=== PATIENT | female | born 1960 | race Caucasian/White ===

== ENCOUNTER 2017-03-19 18:32 | Emergency (ER) | payer OTHER ==
[2017-03-19] MEDS: 0.9 % SODIUM CHLORIDE 1,000 ML IV ONE (18:58)
[2017-03-19 19:22] LABS: BASOPHILS % 0.6 (0.0-1.5); EOSINOPHILS % 1.6 % (0.0-6.8); MEAN CORPUSCULAR VOLUME 81.9 fl (80.0-100.0); MONOCYTES % 3.7 % (0.0-11.0); NEUTROPHILS # 5.8 # k/uL (1.4-7.7)
[2017-03-19 19:32] LABS: eGFR (African) > 60; eGFR (Non-African) > 60
--- NOTE | 2017-03-19 19:35 | ED Physician Documentation ---
Syncope/Near Syncope - HISTORIAN Historian: patient, paramedics - HPI Stated Complaint: Numbness/Tingling to Arms Chief Complaint: Near Syncope Witnessed: Yes Witnessed By: bystander Position at Time of Episode: standing Symptoms Prior to Episode: other (diaphoresis), light-headed Character of Events(s): almost passed out. denies: lost consciousness, became unresponsive, collapsed, felt faint, focal seizure, generalized seizure, tonic seizure, tonic-clonic seizure Location of Injury: none Associated Symptoms: none Further Comments: yes (56 year old female patient brought in via EMS, state she has 3 episodes today where she "felt like I was doing to pass out". Patient states she was at [facility] when the 3rd episode occurred, reports becoming dizzy, walked to the pharmacy, states she was diaphoretic, could not see to dial 911 on her phone, pharmacist called 911. Denies CP or SOB with episode.) - ROS CONST: recent illness EYES/ENT: none GI/: denies: diarrhea, black stools, problems urinating LNMP: denies: MS/SKIN/LYMPH: denies: joint pain, leg swelling, rash, swollen glands, ankle swelling, other NEURO/PSYCH: denies: confusion, anxiety, depression, other - PAST HX Cardiac Disease: none PE Risk Factors: hypertension Other History: Other (PTSD, anxiety, depression) Surgeries/Procedures: none Allergies/Adverse Reactions: Allergies Allergy/AdvReac Type Severity Reaction Status Date / Time Penicillins Allergy Verified 03/19/17 18:44 Home Medications: Ambulatory Orders Medication Instructions Recorded Hydroxyzine Pamoate [Vistaril] 25 mg PO TID 03/19/17 Potassium Chloride [Klor-Con 10] 10 meq PO DAILY #4 tablet.er 03/20/17 - SOCIAL HX Smoking History: non-smoker - FAMILY HX Family History: denies: none - VITAL SIGNS Vital Signs: Vital Signs Temp Pulse Resp BP Pulse Ox 98.1 F 55 L 16 138/54 99 03/19/17 18:35 03/20/17 05:39 03/20/17 05:39 03/20/17 05:39 03/20/17 05:39 - REVIEWED ASSESSMENTS Nursing Assessment Reviewed: Yes Vitals Reviewed: Yes Progress - Progress Progress: Reviewed lab results with patient. Offered observation admission for K replacement. Patient does not want to spend the night. Will replace per hospital IV protocol and discharge with po tabs. Repeat K 3.7 - will send home with 10meq po qd x 4 days. Follow up with primary care on Thursday - EKG/XRAY/CT EKG: rhythm (SR, rate 68, no acute changes) ED Results Lab/Radiology - Lab Results Lab Results: Lab Results 03/20/17 03/19/17 03/19/17 04:37 19:50 19:35 WBC RBC Hgb Hct MCV MCH MCHC RDW Plt Count Neut % (Auto) Lymph % (Auto) Kerr % (Auto) Eos % (Auto) Baso % (Auto) Neut # Lymph # Kerr # Eos # Baso # Reactive Lymphs % Reactive Lymphs # Sodium Potassium 3.7 mmol/L mmol/L (3.5-5.0) Chloride Carbon Dioxide BUN Creatinine Estimated Creat Clear Est GFR ( Amer) Est GFR (Non-Af Amer) Glucose Calcium Total Bilirubin AST ALT Alkaline Phosphatase Troponin I < 0.03 ng/mL L ng/mL (0.03-0.06) Total Protein Albumin Urine Color Yellow (YELLOW) Urine Appearance Cloudy H (CLEAR) Urine pH 5.5 (5.0 - 8.0) Ur Specific [place] 1.015 (1.010-1.030) Urine Protein 1+ mg/dL H mg/dL (NEGATIVE) Urine Ketones Trace mg/dL H mg/dL (NEGATIVE) Urine Occult Blood Negative (NEGATIVE) Urine Nitrite Negative (NEGATIVE) Urine Bilirubin Negative (NEGATIVE) Urine Urobilinogen 0.2 Eu Eu (0.2-1.0) Ur Leukocyte Esterase Trace H (NEGATIVE) Urine Glucose Negative mg/dL mg/dL (NEGATIVE) 03/19/17 03/19/17 19:00 19:00 WBC 8.40 K/ul K/ul (4.00-12.00) RBC 4.93 M/ul M/ul (3.90-5.20) Hgb 13.8 g/dL g/dL (12.0-16.0) Hct 40.4 % % (34.5-46.5) MCV 81.9 fl fl (80.0-100.0) MCH 28.0 pg pg (28.0-34.0) MCHC 34.2 g/dL g/dL (30.0-36.0) RDW 13.2 % % (11.3-14.3) Plt Count 286 K/mm3 K/mm3 (130-400) Neut % (Auto) 68.3 % % (39.0-79.0) Lymph % (Auto) 24.5 % % (16.0-50.0) Kerr % (Auto) 3.7 % % (0.0-11.0) Eos % (Auto) 1.6 % % (0.0-6.8) Baso % (Auto) 0.6 (0.0-1.5) Neut # 5.8 # k/uL # k/uL (1.4-7.7) Lymph # 2.1 # k/uL # k/uL (0.6-4.0) Kerr # 0.3 # k/uL # k/uL (0.0-0.9) Eos # 0.1 # k/uL # k/uL (0.0-0.6) Baso # 0.0 # k/uL # k/uL (0.0-0.5) Reactive Lymphs % 1.2 % % (0.0-5.0) Reactive Lymphs # 0.1 # k/uL # k/uL (0.0-0.8) Sodium 138 mmol/L mmol/L (136-145) Potassium 2.6 mmol/L L mmol/L (3.5-5.0) Chloride 95 mmol/L L mmol/L (98-110) Carbon Dioxide 35 mmol/L H mmol/L (20-32) BUN 25 mg/dL mg/dL (10-26) Creatinine 0.7 mg/dL mg/dL (0.4-1.5) Estimated Creat Clear 194 Est GFR ( Amer) > 60 (60 - ) Est GFR (Non-Af Amer) > 60 (60 - ) Glucose 110 mg/dL H mg/dL (70-99) Calcium 9.9 mg/dL mg/dL (8.5-10.5) Total Bilirubin 1.1 mg/dL mg/dL (0.2-1.2) AST 22 U/L U/L (0-41) ALT 20 U/L U/L (0-45) Alkaline Phosphatase 57 U/L U/L (46-116) Troponin I Total Protein 7.8 g/dL g/dL (6.0-8.5) Albumin 4.7 g/dL g/dL (3.0-5.5) Urine Color Urine Appearance Urine pH Ur Specific [place] Urine Protein Urine Ketones Urine Occult Blood Urine Nitrite Urine Bilirubin Urine Urobilinogen Ur Leukocyte Esterase Urine Glucose - Orders Orders: ED Orders Category Date Time Status Place IV Lock 1T Care 03/19/17 18:46 Active CBC/PLATELET/DIFF Stat Lab 03/19/17 19:00 Completed CMP Stat Lab 03/19/17 19:00 Completed POTASSIUM Stat Lab 03/20/17 04:37 Completed TROPONIN I (cTnI) Stat Lab 03/19/17 19:35 Completed UA MACRO DIP ONLY Routine Lab 03/19/17 19:50 Completed 0.9 % Sodium Chloride [Normal Saline] 1,000 ml Med 03/19/17 18:46 Discontinued IV NOW 0.9 % Sodium Chloride [Normal Saline] 500 ml Med 03/19/17 20:02 Discontinued IV .STK-MED [facility] Med 03/19/17 20:02 Discontinued 1 each MC .STK-MED ONE Potassium Chloride [Klor-Con 10 Meq/5 ml] 40 meq Med 03/19/17 20:20 Discontinued 0.9 % Sodium Chloride [Normal Saline] 500 ml IV NOW Potassium Chloride [Klor-Con 40 Meq/20 ml] Med 03/19/17 19:51 Discontinued 40 meq IV NOW ONE Potassium Chloride [Klor-Con M20] Med 03/19/17 19:51 Discontinued 40 meq PO NOW ONE EKG WITH COMPARISON Stat Ther 03/19/17 18:46 Ordered Syncope Physical Exam - Physical Exam General Appearance: mild distress EENT: nml eye inspection, PERRL, nml ENT inspection, no apparent trauma, pharynx nml, no CSF leak Respiratory: no resp distress, chest non-tender, breath sounds normal CVS: reg rate & rhythm, heart sounds normal, equal pulses, no murmur, no gallop , PMI nml, no JVD, no friction rub, other (SR on monitor) Abdomen: non-tender, no organomegaly, nml bowel sounds, no distention Skin: normal color, warm/dry, NR, INT, PAL, DR Extremities: non-tender, normal range of motion, no evidence of injury, no edema , J, HE[employer] INSPECTOR - Neuro/Psych Higher Functions: alert, oriented x3, no evidence of acute CVA, mood/affect nml Cranial Nerves: nml as tested Cerebellar: nml as tested, nml gait Sensorimotor: nml motor response, nml sensory response, nml reflexes, nml gait Discharge Clincal Impression: Dizziness, Hypokalemia Prescriptions: Potassium Chloride [Klor-Con 10] 10 meq PO DAILY #4 tablet.er Referrals: Ciera Atkinson MD [Primary Care Provider] - 2 Days Additional Instructions: See your primary care doctor on Thursday for a recheck of your potassium. Rest Return to Er if you symptoms become worse - increased dizziness, palpitations, chest pain or shortness of breath Home Medications: Ambulatory Orders Hydroxyzine Pamoate [Vistaril] 25 mg PO TID 03/19/17 Potassium Chloride [Klor-Con 10] 10 meq PO DAILY #4 tablet.er 03/20/17 Condition: Stable Disposition: HOME, SELF-CARE Decision to Admit: NO Decision Time: 05:20
[2017-03-19] MEDS: POTASSIUM CHLORIDE 20 MEQ TABLET.ER PO ONE (20:00)
[2017-03-19] MEDS ORDERED: PHARMACY KEY 1 EACH EACH MC ONE (20:02)
[2017-03-19] MEDS ORDERED: 0.9 % SODIUM CHLORIDE 500 ML IV ONE (20:02)
[2017-03-19] MEDS: SODIUM CHLORIDE IV ONE ×2 (20:20)
[2017-03-19] MEDS: POTASSIUM CHLORIDE IV ONE ×2 (20:20)
[2017-03-19] MEDS: POTASSIUM CHLORIDE 40 MEQ/20ML VIAL IV ONE (20:40)
[2017-03-20 05:41] VITALS: BP 138/54
[2017-03-20 05:58] LABS: APPEARANCE,URINE CLOUDY (CLEAR); COLOR,URINE YELLOW (YELLOW); OCCULT BLOOD,URINE NEGATIVE (NEGATIVE); PH URINE 5.5 (5.0 - 8.0); UROBILINOGEN URINE 0.2 Eu (0.2-1.0)
== END 2017-03-20 05:30 | disposition home or self-care (01) ==
LOC: ED 18:32
DX: R42 Dizziness and giddiness (principal); E87.6 Hypokalemia
CPT/HCPCS: 80053; 81002; 84132; 84484; 85025; A9270; J7030; J7060; 96361; 96374; 99283; S1016

== ENCOUNTER 2017-03-23 11:05 | Outpatient (CLI) | payer OTHER ==
[2017-03-23 11:55] LABS: eGFR (African) > 60; eGFR (Non-African) > 60
== END 2017-03-23 11:06 ==
LOC: LAB 11:05
PROVIDERS: ATTEND Family Medicine
DX: E87.6 Hypokalemia (principal); E55.9 Vitamin D deficiency, unspecified
CPT/HCPCS: 36415; 80048; 82306

== ENCOUNTER 2018-02-10 11:18 | Outpatient (CLI) | payer OTHER ==
[2018-02-10 12:15] LABS: BASOPHILS % 0.5 (0.0-1.5); EOSINOPHILS % 2.6 % (0.0-6.8); MEAN CORPUSCULAR HEMOGLOBIN 28.2 pg (28.0-34.0); MEAN CORPUSCULAR VOLUME 84.8 fl (80.0-100.0); NEUTROPHILS # 4.3 # k/uL (1.4-7.7)
[2018-02-10 12:28] LABS: eGFR (African) > 60; eGFR (Non-African) > 60
== END 2018-02-10 11:20 ==
LOC: LAB 11:18
PROVIDERS: ATTEND Physician Assistant
DX: R20.0 Anesthesia of skin (principal); R53.83 Other fatigue; Z86.39 Personal history of other endocrine, nutritional and metabolic disease; Z13.6 Encounter for screening for cardiovascular disorders
CPT/HCPCS: 36415; 80053; 80061; 82607; 82652; 83735; 84439; 84443; 84481; 85025

== ENCOUNTER 2018-11-30 10:50 | Outpatient (CLI) | payer OTHER ==
[2018-11-30 11:51] LABS: eGFR (Non-African) > 60
== END 2018-11-30 10:53 ==
LOC: LAB 10:50
PROVIDERS: ATTEND Orthopaedic Surgery Sports Medicine
DX: S80.02XD Contusion of left knee, subsequent encounter (principal); M25.562 Pain in left knee
CPT/HCPCS: 36415; 80048

== ENCOUNTER 2019-04-18 16:03 | Outpatient (CLI) | payer OTHER ==
[2019-04-18 16:21] LABS: BASOPHILS % 0.5 % (0.0-1.5); NEUTROPHILS # 6.7 # k/uL (1.4-7.7)
== END 2019-04-18 16:04 ==
LOC: LAB 16:03
PROVIDERS: ATTEND Family Medicine
DX: E55.9 Vitamin D deficiency, unspecified (principal); Z13.0 Encounter for screening for diseases of the blood and blood-forming organs and certain disorders involving the immune mechanism; Z13.29 Encounter for screening for other suspected endocrine disorder
CPT/HCPCS: 36415; 82306; 84443; 85025